=== PATIENT | male | born 1950 ===

== ENCOUNTER 2018-10-20 10:35 | Emergency (ER) | payer SELFPAY ==
[2018-10-20 11:42] VITALS: BP 137/76
--- NOTE | 2018-10-20 13:15 | UC ---
Skin Complaint HPI - HPI Summary HPI Summary: 68 y/o male presents to the urgent care c/o painful boil in his RT forearm for the past 3 days. Pt reports he lives in [facility] and is visiting here for 2 months. He usually gets these boils in the Rt forearm at times. His PCP back home has prescribed a topical cream which clears it, but he forgot to bring it. Now boil has increase in size today. Pain is 4/10 at touch,. he can move his Rt arm w/o any problem. pt denies fever, numbness or tingling sensation over the Rt arm, SOB, chest pain,abdominal pain, N/V/D or drainage. - History of Current Complaint Chief Complaint: UCSkin Time Seen by Provider: 10/20/18 13:11 Stated Complaint: SKIN COMPLAINT Hx Obtained From: Patient Onset/Duration: Gradual Onset, Lasting Days - 3 days, Still Present, Worse Since - today Skin Exposure Onset/Duration: Days Ago - 3 days Timing: Constant Onset Severity: Mild Current Severity: Mild Pain Intensity: 3 - at touch Pain Scale Used: 0-10 Numeric Location: Discrete - lateral side of the Rt forearm w/ a boil, painful at touch Character: Swelling - mild, Redness, Painful Aggravating Factor(s): Touch Alleviating Factor(s): Nothing Associated Signs & Symptoms: Positive: Rash - lateral side of the Rt forearm w/ a boil, painful at touch, Tenderness. Negative: Fever, Chills, Drainage - Allergy/Home Medications Allergies/Adverse Reactions: Allergies Allergy/AdvReac Type Severity Reaction Status Date / Time No Known Allergies Allergy Verified 10/20/18 11:42 Home Medications: Home Medications Desoxicolic Acid 450 mg PO BID 10/20/18 [History] Esomeprazole Magnesium [Nexium] 40 mg PO 10/20/18 [History] Mag Carb/Aluminum Hydrox/Algin [Gaviscon Liquid] 355 ml PO 10/20/18 [History] Pregabalin [Lyrica] 50 mg PO TID 10/20/18 [History Confirmed 10/20/18] Simvastatin TAB(NF) [Zocor 20 MG (NF)] 20 mg PO 10/20/18 [History] PMH/Surg Hx/FS Hx/Imm Hx Previously Healthy: Yes Endocrine History: Dyslipidemia GI/ History: Gastroesophageal Reflux Other Neurological History: neuropathy Other Cancer History: Hepatitis A - Surgical History Surgical History: Yes Surgery Procedure, Year, and Place: orif of lt wrist - Family History Known Family History: Positive: Hypertension - Social History Occupation: Retired Lives: With Family Alcohol Use: Rare Substance Use Type: None Smoking Status (MU): Never Smoked Tobacco Review of Systems All Other Systems Reviewed And Are Negative: Yes Constitutional: Positive: Negative Skin: Positive: Rash - lateral side of the Rt forearm w/ a boil, painful at touch Eyes: Positive: Negative ENT: Positive: Negative Respiratory: Positive: Negative Cardiovascular: Positive: Negative Gastrointestinal: Positive: Negative Genitourinary: Positive: Negative Motor: Positive: Negative Neurovascular: Positive: Negative Musculoskeletal: Positive: Negative Neurological: Positive: Negative Psychological: Positive: Negative Is Patient Immunocompromised?: No Physical Exam - Summary Physical Exam Summary: Vital Signs Reviewed: Yes General: well developed, well nourished obese male sitting in the examining table w/o any apparent distress Eye Exam: Normal Eyes: Positive: Conjunctiva Clear - PERRLA, EOMI, fundi grossly normal ENT: Positive: Normal ENT inspection, Hearing grossly normal, Pharynx normal, TMs normal Neck: Positive: Supple, Nontender, No Lymphadenopathy Respiratory: Positive: Chest non-tender, Lungs clear, Normal breath sounds, No respiratory distress Cardiovascular: Positive: RRR, No Murmur, Pulses Normal, Brisk Capillary Refill Abdomen Description: Positive: Nontender, No Organomegaly, Soft. Negative: CVA Tenderness (R), CVA Tenderness (L) Bowel Sounds: Positive: Present Musculoskeletal: Positive: Strength Intact, ROM Intact, No Edema Neurological: Positive: Alert, Muscle Tone Normal Psychological Exam: Normal Skin: Positive: lateral side of the RT forearm w/ a small erythematous pustule that is indurated , no fluctuant, tender to palpation, swollen, and warm to touch about 0.5cmx 0.5cm in size. FROM of RT arm, sensation is intact, capillary refill WNL, reflexes WNL Triage Information Reviewed: Yes Vital Signs: Initial Vital Signs Temp 99.1 F 10/20/18 11:36 Pulse 64 10/20/18 11:36 Resp 18 10/20/18 11:36 BP 137/76 10/20/18 11:36 Pulse Ox 99 10/20/18 11:36 Course/Dx - Course Course Of Treatment: 68 y/o male presents to the urgent care c/o painful boil in his RT forearm for the past 3 days. Pt reports he lives in [facility] and is visiting here for 2 months. He usually gets these boils in the Rt forearm at times. His PCP back home has prescribed a topical cream which clears it, but he forgot to bring it. Now boil has increase in size today. Pain is 4/10 at touch. he can move his Rt arm w/o any problem. pt denies fever, numbness or tingling sensation over the Rt arm, SOB, chest pain,abdominal pain, N/V/D or drainage. Hx obtained. Pt w/ lateral side of the RT forearm w/ a small erythematous pustule that is indurated , no fluctuant, tender to palpation, swollen, and warm to touch about 0.5cmx 0.5cm in size. FROM of RT arm, sensation is intact, capillary refill WNL , reflexes WNL on examination. Pt w/ a RT forearm small abscess that is not ready for I&D yet. Pt Rx Keflex PO and Bacitracin oint as directed below. Advised to apply warm compresses and massage. Advised to take Ibuprofen PO for pain and swelling. D/C instructions explained. Pt advised if not improvement of symptoms to return to the urgent care or PCP for further management. PT understood and agreed w/ plan of care. - Differential Diagnoses - Skin Complaint Differential Diagnoses: Abscess, Cellulitis, Contact Dermatitis, Local Allergic Reaction, MRSA - Diagnoses Provider Diagnosis: Abscess of right forearm Discharge - Sign-Out/Discharge Documenting (check all that apply): Patient Departure - D/C home All imaging exams completed and their final reports reviewed: No Studies - Discharge Plan Condition: Stable Disposition: HOME Prescriptions: Cephalexin CAP* [Keflex CAP*] 500 mg PO TID #21 cap Mupirocin 2% OINT* [Bactroban 2 % Oint*] 1 applic TOPICAL BID #1 tube Patient Education Materials: Abscess (ED) Referrals: [facility] [Outside] - 3 Days Additional Instructions: 1-Please take full course of Antibiotic as directed . Please take yogurts w/ probiotics or culturelle to protect your GI system 2- If redness and swelling doubles in size after 48 hrs of taking antibiotic and fever develops please go to the ER immediately. 3-Avoid flexing your arm too much, keep it elevated and keep wound clean and dry. apply warm compresses and massage. Apply Bactroban topical cream as directed 4-Please F/u with your PCP in 3 days if not improvement of symptoms for further evaluation and treatment. - Billing Disposition and Condition Condition: STABLE Disposition: Home
== END 2018-10-20 13:35 | disposition home or self-care (01) ==
LOC: UCEAST 10:35
DX: L02.413 Cutaneous abscess of right upper limb (principal); E78.5 Hyperlipidemia, unspecified; K21.9 Gastro-esophageal reflux disease without esophagitis; G62.9 Polyneuropathy, unspecified; B15.9 Hepatitis A without hepatic coma
CPT/HCPCS: 99202; G0463